=== PATIENT | female | born 1945 | race Caucasian/White ===

== ENCOUNTER → 2018-09-02 10:56 | Outpatient (CLI) | payer MEDICARE, OTHER, SELFPAY ==
[2018-09-02 12:14] LABS: Erythrocyte Sedimentation Rate 41 MM/HR (0-20)
[2018-09-02 12:16] LABS: BUN Creatinine Ratio 27.1 (6-22); Blood Urea Nitrogen 19 mg/dL (7-17); Calcium 9.7 mg/dL (8.4-10.2); Carbon Dioxide 33 mmol/L (22-32); Chloride 101 mmol/L (98-107); Estimated Glomerular Filt Rate > 60.0 mL/min (>60); Glucose 92 mg/dL (80-110); HEMOLYSIS < 15 (0-50); Potassium 3.4 mmol/L (3.4-5.1); Sodium 142 mmol/L (137-145)
[2018-09-02 12:44] LABS: TSH w/ Reflex to FT4 1.13 uIU/mL (0.47-4.68)
== END ==
PROVIDERS: Family Provider Family Medicine; PCP Family Medicine; Visit Provider Family Medicine
DX: G47.19 Other hypersomnia (principal); R53.83 Other fatigue; I10 Essential (primary) hypertension
CPT/HCPCS: 36415; 80048; 84443; 85651; 86140

== ENCOUNTER → 2020-01-07 16:54 | Outpatient (CLI) | payer MEDICARE, OTHER, SELFPAY ==
--- NOTE | 2020-01-07 16:57 | DI.MG.S_ITS ---
BILATERAL DIGITAL SCREENING MAMMOGRAM 3D/2D WITH CAD: 01/07/2020 CLINICAL: Routine screening. Comparison is made to exams dated: 07/25/2015 mammogram, 12/31/2016 mammogram, and 12/31/2017 mammogram - [facility]. There are scattered fibroglandular elements in both breasts. Current study was also evaluated with a Computer Aided Detection (CAD) system. There are benign vascular calcifications in the left breast. No significant masses, calcifications, or other findings are seen in either breast. There has been no significant interval change. IMPRESSION: BENIGN There is no mammographic evidence of malignancy. A 1 year screening mammogram is recommended. This exam was interpreted at Station ID: [id number]. NOTE: For mammograms, a report in lay terms will be sent to the patient. Approximately 15% of breast malignancies will not be visualized mammographically. In the management of a palpable breast mass, a negative mammogram must not discourage biopsy of a clinically suspicious lesion. Electronically Signed By: Denise zhu/abdirahman:01/11/2020 10:45:53 letter sent: Normal Exam ACR BI-RADS Category 2: Benign Finding(s) 3342F
== END ==
PROVIDERS: Family Provider Family Medicine; PCP Family Medicine; Referring Provider Family Medicine; Visit Provider Family Medicine
DX: Z12.31 Encounter for screening mammogram for malignant neoplasm of breast (principal)
CPT/HCPCS: 77063; 77067

== ENCOUNTER → 2020-09-19 13:30 | Outpatient (CLI) | payer MEDICARE, OTHER, SELFPAY ==
--- NOTE | 2020-09-19 13:31 | DI.RAD.S_ITS ---
PROCEDURE: XR SHOULDER LT MIN 2V INDICATIONS: left shoulder pain TECHNIQUE: 3 views of the shoulder were acquired. COMPARISON: None. FINDINGS: Bones: No fractures or dislocations. No suspicious bony lesions. Visualized ribs appear intact. Mild joint narrowing with periarticular osteophyte formation of the acromioclavicular and glenohumeral joint. Soft tissues: No suspicious soft tissue calcifications. IMPRESSION: Mild acromioclavicular and glenohumeral joint degeneration. Dictated by: Marcus Lindsay [facility] Interpreted: Josse Zarate MD on 09/19/2020 at 13:58 Transcribed by: JEROMY on 09/19/2020 at 14:00 Approved by: Josse Zarate M.D. on 09/19/2020 at 15:05
--- NOTE | 2020-09-19 13:31 | DI.RAD.S_ITS ---
PROCEDURE: XR HUMERUS LT 2V INDICATIONS: left arm pain TECHNIQUE: 2 views of the humerus were acquired. COMPARISON: [facility], CR, XR SHOULDER LT MIN 2V, 09/19/2020, 13:30. FINDINGS: Bones: No fractures or dislocations. No suspicious bony lesions. Soft tissues: No suspicious soft tissue calcifications. IMPRESSION: No definite radiographic abnormality. If pain persists with conservative management, consider cross sectional imaging such as CT or MRI for further assessment. Dictated by: Marcus Lindsay [facility] Interpreted: Josse Zarate MD on 09/19/2020 at 13:57 Transcribed by: JEROMY on 09/19/2020 at 13:58 Approved by: Josse Zarate M.D. on 09/19/2020 at 15:05
== END ==
PROVIDERS: Family Provider Family Medicine; PCP Family Medicine; Referring Provider Registered Nurse; Visit Provider Registered Nurse
DX: M25.512 Pain in left shoulder (principal); M79.602 Pain in left arm; M19.012 Primary osteoarthritis, left shoulder
CPT/HCPCS: 73030; 73060

== ENCOUNTER → 2021-01-15 17:50 | Outpatient (CLI) | payer MEDICARE, OTHER, SELFPAY ==
--- NOTE | 2021-01-15 | DI.MG.S_ITS ---
BILATERAL DIGITAL SCREENING MAMMOGRAM 3D/2D WITH CAD: 01/15/2021 CLINICAL: Routine screening. Comparison is made to exams dated: 01/07/2020 mammogram - [facility], 12/31/2017 mammogram, and 12/31/2016 mammogram - [facility]. There are scattered fibroglandular elements in both breasts. Current study was also evaluated with a Computer Aided Detection (CAD) system. There are calcifications in the right breast. There also are benign vascular calcifications in the left breast. No significant masses, calcifications, or other findings are seen in either breast. There has been no significant interval change. IMPRESSION: BENIGN There is no mammographic evidence of malignancy. A 1 year screening mammogram is recommended. This exam was interpreted at Station ID: [id number]. NOTE: For mammograms, a report in lay terms will be sent to the patient. Approximately 15% of breast malignancies will not be visualized mammographically. In the management of a palpable breast mass, a negative mammogram must not discourage biopsy of a clinically suspicious lesion. Electronically Signed By: Josse Zarate M.D. at/:01/16/2021 07:09:01 letter sent: Normal Exam ACR BI-RADS Category 2: Benign Finding(s) 3342F
== END ==
PROVIDERS: Family Provider Family Medicine; PCP Family Medicine; Referring Provider Family Medicine; Visit Provider Family Medicine
DX: Z12.31 Encounter for screening mammogram for malignant neoplasm of breast (principal)
CPT/HCPCS: 77063; 77067

== ENCOUNTER → 2021-04-10 10:08 | Outpatient (CLI) | payer MEDICARE, OTHER, SELFPAY ==
[2021-04-10 12:20] LABS: Add Manual Diff / Slide Review NO; Basophils Absolute Auto 0 /uL (0-100); Basophils Percent Auto 0.9 % (0-2); Eosinophils Absolute Auto 100 /uL (0-450); Eosinophils Percent Auto 2.1 % (2-4); Hematocrit 40.2 % (36-46); Hemoglobin 13.6 g/dL (12.0-16.0); Lymphocytes Absolute Auto 1300 /uL (1100-4500); Mean Corpuscular HGB Conc 33.7 % (30-36); Mean Corpuscular Hemoglobin 28.8 PG (26-34); Mean Corpuscular Volume 85.4 fL (80-100); Monocytes Absolute Auto 300 /uL (0-900); Neutrophils Absolute Auto 2900 /uL (1500-7000); Platelet Count 178 X10^3/uL (150-400); Red Cell Distribution Width 14.3 % (11.6-14.8); White Blood Cell Count 4.7 X10^3/uL (4.5-11.0)
[2021-04-10 13:25] LABS: Alanine Aminotransferase 16 IU/L (<35); Albumin 4.5 g/dL (3.5-5.0); Albumin Globulin Ratio 1.5 (1.0-2.8); Alkaline Phosphatase 69 U/L (38-126); Aspartate Aminotransferase 23 IU/L (14-36); BUN Creatinine Ratio 17.4 (6-22); Bilirubin Total 0.6 mg/dL (0.2-1.3); Blood Urea Nitrogen 12 mg/dL (7-17); Calcium 9.5 mg/dL (8.4-10.2); Carbon Dioxide 33 mmol/L (22-32); Chloride 102 mmol/L (98-107); Cholesterol 195 mg/dL (140-199); Estimated Glomerular Filt Rate > 60.0 mL/min (>60); Glucose 90 mg/dL (80-110); HDL Cholesterol 48 mg/dL (40-60); HEMOLYSIS < 15 (0-50); LDL Cholesterol Calculated 101 mg/dL (<100); Magnesium 2.1 mg/dL (1.6-2.3); Potassium 4.2 mmol/L (3.4-5.1); Sodium 142 mmol/L (137-145); Total Protein 7.5 g/dL (6.3-8.2); Triglycerides 232 mg/dL (35-150)
== END ==
PROVIDERS: Family Provider Family Medicine; PCP Family Medicine; Referring Provider Family Medicine; Visit Provider Family Medicine
DX: E78.5 Hyperlipidemia, unspecified (principal); I10 Essential (primary) hypertension; M85.80 Other specified disorders of bone density and structure, unspecified site; R73.03 Prediabetes; Z00.00 Encounter for general adult medical examination without abnormal findings
CPT/HCPCS: 36415; 80053; 80061; 83735; 84443; 85025

== ENCOUNTER → 2022-01-28 16:15 | Outpatient (CLI) | payer MEDICARE, OTHER, SELFPAY ==
--- NOTE | 2022-01-28 16:16 | DI.MG.S_ITS ---
BILATERAL DIGITAL SCREENING MAMMOGRAM 3D/2D WITH CAD: 01/28/2022 CLINICAL: Routine screening. Comparison is made to exams dated: 01/15/2021 mammogram, 01/07/2020 mammogram - [facility], 12/31/2017 mammogram, and 12/31/2016 mammogram - [facility]. There are scattered areas of fibroglandular density in both breasts (category b / 25%-50% glandular tissue). Current study was also evaluated with a Computer Aided Detection (CAD) system. There are benign calcifications in the right breast. There also are benign vascular calcifications in the left breast. Additionally, there are benign post operative findings in the right breast. No significant masses, calcifications, or other findings are seen in either breast. There has been no significant interval change. IMPRESSION: BENIGN There is no mammographic evidence of malignancy. A 1 year screening mammogram is recommended. Based on the Tyrer Cuzick model (a risk assessment model) the patient's lifetime risk is 3.6% and her 10 year risk is 3.2%. According to the ACR, ACS, and NCCN guidelines, an annual breast MRI exam along with mammogram is recommended if the patient's lifetime risk is 20% or greater. This exam was interpreted at Station ID: [id number]. NOTE: For mammograms, a report in lay terms will be sent to the patient. Approximately 15% of breast malignancies will not be visualized mammographically. In the management of a palpable breast mass, a negative mammogram must not discourage biopsy of a clinically suspicious lesion. Electronically Signed By: Chuy anaya/abdirahman:01/29/2022 08:52:52 letter sent: Normal Exam ACR BI-RADS Category 2: Benign Finding(s) 3342F
== END ==
PROVIDERS: Family Provider Family Medicine; PCP Family Medicine; Referring Provider Family Medicine; Visit Provider Family Medicine
DX: Z12.31 Encounter for screening mammogram for malignant neoplasm of breast (principal)
CPT/HCPCS: 77063; 77067

== ENCOUNTER 2022-07-17 14:13 | Emergency (ER) | payer MEDICARE, OTHER, SELFPAY ==
--- NOTE | 2022-07-17 14:33 | DI.RAD.S_ITS ---
PROCEDURE: XR HIP W PEL IF DONE RT 2V INDICATIONS: pain TECHNIQUE: 2 views of the hip were acquired. COMPARISON: None. FINDINGS: Bones: No fractures or dislocations. No suspicious bony lesions. The visualized pelvic ring appears intact. Soft tissues: No suspicious soft tissue calcifications or masses. IMPRESSION: No acute bony abnormality. Dictated by: Juve Greco M.D. on 07/17/2022 at 16:00 Approved by: Juve Greco M.D. on 07/17/2022 at 16:01
[2022-07-17 14:34] VITALS: BP 218/103; PULSE 74; RESP 18; TEMP 36.6; O2SAT 95; BMI 28.5
--- NOTE | 2022-07-17 14:38 | DI.RAD.S_ITS ---
PROCEDURE: XR LUMBAR SPINE 2-3V INDICATIONS: Radiculopathy with hip pain TECHNIQUE: 3 views of the lumbar spine were acquired. COMPARISON: None. FINDINGS: Bones: 5 yov-lpe-epsufum vertebrae are present. Convex left curvature of the lumbar spine, centered at L2-3. Grade 1 anterolisthesis of L4 on L5 and L3 on L4. Extensive facet arthrosis. Moderate disc height loss at all levels. Soft tissues: Overlying bowel gas pattern is normal. No suspicious soft tissue calcifications. IMPRESSION: Moderate, multilevel degenerative disc disease and facet arthrosis. Mild listhesis as above, likely due to facet arthrosis. Dictated by: Juve Greco M.D. on 07/17/2022 at 15:59 Approved by: Juve Greco M.D. on 07/17/2022 at 15:59
--- NOTE | 2022-07-17 14:38 | ED.EXTPRO ---
HPI - Extremity Problem <Katelyn June, [facility] - Last Filed: 07/17/22 16:25> General Chief complaint: Extremity Problem,Nontraumatic Stated complaint: RT hip/knee painful can't sleep T-21 Time Seen by Provider: 07/17/22 14:37 Source: patient Mode of arrival: Wheelchair History of Present Illness HPI Narrative: This is a 77-year-old female emergency department after a long road trip complaining of right-sided hip pain with radiation down to her knee and denies any recent trauma. She states that she has known curvature to her spine, states that she has not had much for sciatica symptoms in the past but has been having right hip pain which radiates to her right knee ever since coming back on this trip. She denies any recent falls or injuries, denies any weakness, denies any stool urinary changes. Denies recent fever chills, upper respiratory infection, or history of substance abuse. Related Data Home Medications Medication Instructions Recorded Confirmed triamcinolone acetonide 0.1 % 1 applic topical DAILY PRN 07/06/20 01/23/22 topical cream [employer] DreamStation 2 #1 ea 01/09/21 01/23/22 Previous Rx's Medication Instructions Recorded armodafinil 50 mg tablet 50 mg PO QAM PRN Excessive daytime 05/21/18 sleepiness #30 tabs calcium carbonate 500 mg-vitamin 1 tab PO BIDCC #180 tabs 01/25/21 D3 5 mcg (200 unit) tablet (Oyster Shell Calcium-Vitamin D3) omeprazole 20 mg capsule,delayed 20 mg PO Q DAY #90 caps 04/19/22 release simvastatin 40 mg tablet (Zocor) 40 mg PO HS #90 tabs 04/19/22 hydrocodone 5 mg-acetaminophen 325 1 tab PO TID PRN pain #14 tabs 07/17/22 mg tablet lidocaine 5 % topical patch 1 patch topical DAILY PRN 07/17/22 sciatica, place over low back #30 ea methocarbamol 500 mg tablet 500 mg PO Q8H PRN muscle 07/17/22 tightness/spasm/sleep #20 tabs prednisone 20 mg tablet 20 mg PO DAILY #5 tabs 07/17/22 Allergies Allergy/AdvReac Type Severity Reaction Status Date / Time penicillin G [PENICILLIN G] Allergy Severe Hives Verified 01/23/22 14:15 tolmetin [TOLMETIN] Allergy Severe HIVES Verified 01/23/22 14:15 coffee (Coffea arabica) AdvReac Mild TACHYCARDIA Verified 01/23/22 14:15 [COFFEE] Review of Systems <YELITZA Chavez - Last Filed: 07/17/22 16:25> Review of Systems ROS Unobtainable: All systems reviewed & are unremarkable except as noted in HPI and below Patient History <YELITZA Chavez - Last Filed: 07/17/22 16:25> Medical History Allergic rhinitis due to pollen Behind on immunizations Borderline diabetes mellitus (05/20/14) Class 1 obesity (05/20/14) Dermatitis (03/17/13) Eczema Endometrial hyperplasia (01/28/13) Excessive daytime sleepiness Fibroadenoma of right breast (03/25/13) GERD (gastroesophageal reflux disease) Hyperlipidemia Hypertension Left arm pain Left shoulder pain Menopause Normal Papanicolaou smear Obstructive sleep apnea syndrome (01/2010) Osteopenia (11/22/15) Physician orders for life-sustaining treatment (POLST) form indicates patient wish for fc-nxe-wverzlshclb status (08/07/15) Thickened endometrium (01/2013) Surgical History Status post breast lumpectomy Status post laparoscopic cholecystectomy (2001) Family History Father Glaucoma COPD (chronic obstructive pulmonary disease) Smoker Alcohol drinker Mother Tobacco use disorder Throat cancer Family/Other Brain aneurysm Social History marital status: details: to Rikki, lives in [place] household members: spouse lives independently: Yes caregiver/support person: No housing: house pets and animals: Yes (3 Yorkies) Smoking Status: Former smoker Smoking Status: Former smoker Exam <YELITZA Chavez - Last Filed: 07/17/22 16:25> Narrative Exam Narrative: Reviewed vitals signs and nursing notes. General: Pleasant, sitting upright, in no acute distress, well groomed, afebrile HEENT: symmetrical facial expressions, moist mucous membranes, neck is supple CV: regular rate and rhythm, warm extremities Respiratory: normal work of breathing, without tachypnea or hypoxia. GI: abdomen soft, nondistended, without CVA tenderness bilaterally. MSK: moves all extremities, no weakness, normal tone, ambulatory without deficit, right leg lift exacerbates symptoms, nontender over lumbar and sacral spine, she has radiation to the right lateral hip BACK: tubular splitting machine tender but free of any obvious external abnormalities out vertebral point tenderness. There are no symptoms of cauda equina such as saddle anesthesia, and decreased reflexes, decreased sensation or strength. Skin: brisk capillary refill, without rash or wound Neuro: clear speech and normal cognition, A&O x3, GCS 15, no focal motor or sensation deficits Initial Vital Signs Initial Vital Signs: Vital Signs Temperature 98 F 07/17/22 14:34 Pulse Rate 74 07/17/22 14:34 Respiratory Rate 18 07/17/22 14:34 Blood Pressure 218/103 H 07/17/22 14:34 Pulse Oximetry 95 07/17/22 14:34 Oxygen Delivery Method Room Air 07/17/22 14:34 <Kyree Mcdonald MD - Last Filed: 07/20/22 12:46> Initial Vital Signs Initial Vital Signs: Vital Signs Temperature 98 F 07/17/22 14:34 Pulse Rate 74 07/17/22 14:34 Respiratory Rate 18 07/17/22 14:34 Blood Pressure 218/103 H 07/17/22 14:34 Pulse Oximetry 95 07/17/22 14:34 Oxygen Delivery Method Room Air 07/17/22 14:34 Course <YELITZA Chavez - Last Filed: 07/17/22 16:25> Orders Ordered: Discontinued Medications Hydrocodone Bitart/Acetaminophen (Hydrocodone/Acet 5/325 Tablet) 1 tab PO NOW ONE Stop: 07/17/22 14:47 Last Admin: 07/17/22 15:19 Dose: 1 tab Documented By: INOCENCIO Diazepam (Diazepam 5 Mg Tablet) 5 mg PO NOW ONE Stop: 07/17/22 14:49 Last Admin: 07/17/22 15:20 Dose: 5 mg Documented By: INOCENCIO Lidocaine (Lidocaine Patch 1 Each Adh..Patch) 1 each TOP NOW ONE Stop: 07/17/22 14:47 Last Admin: 07/17/22 15:13 Dose: 1 each Documented By: INOCENCIO Prednisone (Prednisone 20 Mg Tablet) 40 mg PO NOW ONE Stop: 07/17/22 14:47 Last Admin: 07/17/22 15:19 Dose: 40 mg Documented By: INOCENCIO Vital Signs Vital signs: Vital Signs - 8 hr 07/17/22 14:34 07/17/22 15:24 07/17/22 15:53 Temperature 98 F Pulse Rate 74 70 71 Respiratory Rate 18 18 14 Blood Pressure 218/103 H 212/98 H 192/88 H Pulse Oximetry 95 98 95 Oxygen Delivery Method Room Air Room Air <Kyree Mcdonald MD - Last Filed: 07/20/22 12:46> Orders Ordered: Discontinued Medications Hydrocodone Bitart/Acetaminophen (Hydrocodone/Acet 5/325 Tablet) 1 tab PO NOW ONE Stop: 07/17/22 14:47 Last Admin: 07/17/22 15:19 Dose: 1 tab Documented By: INOCENCIO Diazepam (Diazepam 5 Mg Tablet) 5 mg PO NOW ONE Stop: 07/17/22 14:49 Last Admin: 07/17/22 15:20 Dose: 5 mg Documented By: INOCENCIO Lidocaine (Lidocaine Patch 1 Each Adh..Patch) 1 each TOP NOW ONE Stop: 07/17/22 14:47 Last Admin: 07/17/22 15:13 Dose: 1 each Documented By: INOCENCIO Prednisone (Prednisone 20 Mg Tablet) 40 mg PO NOW ONE Stop: 07/17/22 14:47 Last Admin: 07/17/22 15:19 Dose: 40 mg Documented By: INOCENCIO Vital Signs Vital signs: Vital Signs - 8 hr 07/17/22 14:34 07/17/22 15:24 07/17/22 15:53 Temperature 98 F Pulse Rate 74 70 71 Respiratory Rate 18 18 14 Blood Pressure 218/103 H 212/98 H 192/88 H Pulse Oximetry 95 98 95 Oxygen Delivery Method Room Air Room Air MDM - Extremity (Nontraumatic) <YELITZA Chavez - Last Filed: 07/17/22 16:25> MDM Narrative Medical decision making narrative: Chief Complaint: Right hip pain and sciatica Primary historian: Patient Differential diagnoses considered but not limited to: disc injury/herniation, radiculopathy, muscular sprain, chronic pain, malignancy, spondyloarthropathy, nerve compression, acute fracture, urinary tract infection, osteoarthritis, degenerative disc disease, cauda equina, osteomyelitis, epidural abscess, spinal stenosis, ligamental injury. I have reviewed the patient's vital signs and nursing notes as well as prior records if available. Prior Charts reviewed: Yes My interpretation of Imaging: Lumbar x-ray shows degenerative disc disease and facet arthropathy. Course of care: Suspect likely musculoskeletal etiology and acute exacerbation of lumbar radiculopathy due to recent long travel and curvature of spine Patient's straight leg raise test was positive. No back pain red flags on history or physical. No history of IV substance use, or bony tenderness to palpation, no trauma, no bony tenderness to palpation, and are afebrile. No bowel or urinary incontinence or retention, no saddle anesthesia, no new/worsening distal weakness, decreased reflexes or foot drop. Pt is nontoxic appearing. Patient has soft tissue tenderness to palpation. Pt is neurovascularly intact distally, without decreased reflexes or strength, and without immunosuppression or evidence of infection, peritoneal signs, hypertensive crisis, incontinence, or meningeal signs. Patient's symptoms improved over duration of stay with above-stated therapies. Discharge diagnosis, return precautions and plan discussed with patient followed by verbalization of understanding. Social considerations that may affect disposition: none Questions are addressed and there is agreement with the plan and for follow-up with PCP and with Orthopedics for outpatient physical therapy and advanced imaging if indicated. Patient is appropriate for outpatient management. MIPS: This encounter doesn't have any diagnosis' associated with MIPS criteria. Social considerations that may affect disposition: none Questions are addressed and there is agreement with the plan and for follow-up. I consulted with the ED attending physician Dr. Mcdonald as needed for higher level of care considerations and they were available for discussion and recommendations regarding plan of care and diagnostic testing. Patient is appropriate for outpatient management. Discharge Plan Departure Patient Disposition: Home Clinical Impression: Acute lumbar radiculopathy Hypertension Qualifiers: Hypertension type: unspecified Qualified Code(s): I10 - Essential (primary) hypertension Degenerative disk disease Qualifiers: Spinal region: unspecified cervical region Qualified Code(s): M50.30 - Other cervical disc degeneration, unspecified cervical region Instructions: DI for High Blood Pressure, Lumbar Radiculopathy Activity Restrictions/Additional Instructions: *You have been diagnosed with lumbar radiculopathy/sciatica in your right leg. I am sorry for this pain as it can be quite severe. I have given you a steroid to help decrease the inflammation, if you are tolerant of ibuprofen or leave or any other anti-inflammatory medicine, please use this in conjunction with Tylenol for pain. If you have muscle spasms or tightness, take methocarbamol, it will make you sleepy, if you have severe pain please take hydrocodone but take a stool softener with it because constipation with this pain can be worsening pain. I hope you feel better soon. You have elevated blood pressure today. Please send Dr. Ma a message and let her know that you were seen in the emergency department for this and for your high blood pressure, and ask for a sooner appointment than December. See if you can move yours up more urgently. If you can, ask for an MRI of your lumbar spine, a referral to physical therapy, and to start you on a blood pressure medication. Since you not have any symptoms from this high blood pressure, it is not an emergency to treat it. I want you to feel better from your pain and I assume this blood pressure will come down a little bit. Schedule an appointment with [facility], I have sent your chart to both the office and to Dr. Ma. Your appointment at [facility] will be for follow-up and evaluation of your low back and hip pain. *What to do: *Please continue to take your regular medications as directed. [x ] New medication prescriptions sent to your pharmacy: [DOD] [ ] New medication written as a paper prescription [ ] No new medications given *Please call and schedule follow up with your primary care provider in 2-3 days, at least for an update. Let them know you were seen in the Emergency Department for the above problem. We will electronically transmit a record of today's note if your PCP or specialist is in our system. *If you do not have a primary care provider please contact [phone] to establish care with one of the [facility] primary care providers. *Return to the Emergency Department for worsening symptoms, inability to keep liquids down, fever greater than 101F, chills, or other concerning symptom. Prescriptions: New prednisone 20 mg tablet 20 mg PO DAILY Qty: 5 0RF lidocaine 5 % adhesive patch,medicated 1 patch topical DAILY PRN (Reason: sciatica, place over low back) Qty: 30 0RF Rx Instructions: leave on most painful area for up to 12 hrs methocarbamol 500 mg tablet 500 mg PO Q8H PRN (Reason: muscle tightness/spasm/sleep) Qty: 20 0RF hydrocodone-acetaminophen 5-325 mg tablet 1 tab PO TID PRN (Reason: pain) Qty: 14 0RF Rx Instructions: Please take a stool softener with this medication to prevent worsening pain and constipation. No Action calcium carbonate-vitamin D3 [Oyster Shell Calcium-Vit D3] 500 mg-5 mcg (200 unit) tablet 1 tab PO BIDCC Qty: 180 3RF omeprazole 20 mg capsule,delayed release(DR/EC) 20 mg PO Q DAY Qty: 90 0RF simvastatin [Zocor] 40 mg tablet 40 mg PO HS Qty: 90 0RF armodafinil 50 mg tablet 50 mg PO QAM PRN (Reason: Excessive daytime sleepiness) Qty: 30 0RF (DME) [employer] DreamStation 2 Qty: 1 Dose Instruction: As directed Patient Comments: Pressure: 6-12 cmH2O DME: [facility] Rx Instructions: As directed triamcinolone acetonide 0.1 % cream 1 applic TOP DAILY PRN Referrals: [facility] [Provider Group] Mable Ma DO [Primary Care Provider] - Stand Alone Forms: Patient Portal/API <Kyree Mcdonald MD - Last Filed: 07/20/22 12:46> Cosign ED Attending Cosignature Attestation: I was immediately available in the department for consultation. This documentation has been reviewed and I agree with assessment and plan. Supervised by Kyree Mcdonald MD
[2022-07-17] MEDS: LIDOCAINE PATCH 1 EACH ADH..PATCH TOP (15:13)
[2022-07-17] MEDS: HYDROCODONE/ACET 5/325 TABLET 1 TAB PO (15:19)
[2022-07-17] MEDS: predniSONE 20 MG TABLET 40 MG PO (15:19)
[2022-07-17] MEDS: diazePAM 5 MG TABLET PO (15:20)
[2022-07-17 15:24] VITALS: BP 212/98; PULSE 70; RESP 18; O2SAT 98
--- NOTE | 2022-07-17 15:29 | PC.NURSE ---
SBP consistently 200's, taken multiple times. Pt dneis headache or change in vision, chest pain, palpitations. Pt does not take BP medications. provdier updated.
[2022-07-17 15:53] VITALS: BP 192/88; PULSE 71; RESP 14; O2SAT 95
== END 2022-07-17 16:38 | disposition home or self-care (01) ==
PROVIDERS: Emergency Provider Nurse Practitioner Critical Care Medicine; Family Provider Family Medicine; PCP Family Medicine
DX: M54.16 Radiculopathy, lumbar region (principal); I10 Essential (primary) hypertension; M50.30 Other cervical disc degeneration, unspecified cervical region
CPT/HCPCS: 72100; 73502; 99283; 99284

== ENCOUNTER → 2022-12-23 09:03 | Outpatient (CLI) | payer MEDICARE, OTHER, SELFPAY ==
[2022-12-23 09:48] LABS: Alanine Aminotransferase 22 IU/L (<35); Albumin 4.3 g/dL (3.5-5.0); Albumin Globulin Ratio 1.3 (1.0-2.8); Alkaline Phosphatase 74 U/L (38-126); Aspartate Aminotransferase 25 IU/L (14-36); BUN Creatinine Ratio 15.2 (6-22); Bilirubin Total 0.6 mg/dL (0.2-1.3); Blood Urea Nitrogen 10 mg/dL (7-17); Calcium 9.9 mg/dL (8.4-10.2); Carbon Dioxide 32 mmol/L (22-32); Chloride 103 mmol/L (98-107); Cholesterol 191 mg/dL (140-199); Estimated Glomerular Filt Rate > 60 mL/min (>60); Globulin 3.2 g/dL (1.7-4.1); Glucose 103 mg/dL (80-110); HDL Cholesterol 51 mg/dL (40-60); HEMOLYSIS < 15 (0-50); LDL Cholesterol Calculated 102 mg/dL (<100); Sodium 139 mmol/L (137-145); Total Protein 7.5 g/dL (6.3-8.2); Triglycerides 190 mg/dL (35-150)
[2022-12-23 09:52] LABS: High Sensitivity CRP - Cardiac 2.4 mg/L (1.0-3.0)
[2022-12-23 10:10] LABS: Creatinine Urine Random 96.9 mg/dL
[2022-12-23 10:15] LABS: Microalbumi Creatinin Ratio Ur 17.5 ug/mg CR (<30); Microalbumin Urine Random 1.7 mg/dL (0-1.6)
[2022-12-23 10:28] LABS: TSH w/ Reflex to FT4 2.42 uIU/mL (0.47-4.68)
[2022-12-23 12:44] LABS: Hemoglobin A1C% w Est Avg Glu 5.6 % (4.0-6.0)
== END ==
PROVIDERS: Family Provider Family Medicine; PCP Family Medicine; Referring Provider Family Medicine; Visit Provider Family Medicine
DX: R73.03 Prediabetes (principal); E66.9 Obesity, unspecified; K21.9 Gastro-esophageal reflux disease without esophagitis; M85.80 Other specified disorders of bone density and structure, unspecified site; I10 Essential (primary) hypertension; E78.5 Hyperlipidemia, unspecified
CPT/HCPCS: 36415; 80053; 80061; 82043; 82570; 83036; 84443; 86140

== ENCOUNTER → 2023-02-05 09:14 | Outpatient (CLI) | payer MEDICARE, OTHER, SELFPAY ==
--- NOTE | 2023-02-05 | DI.MG.S_ITS ---
BILATERAL DIGITAL SCREENING MAMMOGRAM 3D/2D WITH CAD: 02/05/2023 CLINICAL: Routine screening. Comparison is made to exams dated: 01/28/2022 mammogram, 01/15/2021 mammogram, and 01/07/2020 mammogram - [facility]. There are scattered areas of fibroglandular density in both breasts (category b / 25%-50% glandular tissue). Current study was also evaluated with a Computer Aided Detection (CAD) system. There are benign calcifications in the right breast. There also are benign vascular calcifications in the left breast. Additionally, there are benign post operative findings in the right breast. No significant masses, calcifications, or other findings are seen in either breast. There has been no significant interval change. IMPRESSION: BENIGN There is no mammographic evidence of malignancy. A 1 year screening mammogram is recommended. Based on the Tyrer Cuzick model (a risk assessment model) the patient's lifetime risk is 3.3% and her 10 year risk is 3.3%. According to the ACR, ACS, and NCCN guidelines, an annual breast MRI exam along with mammogram is recommended if the patient's lifetime risk is 20% or greater. This exam was interpreted at Station ID: [id number]. NOTE: For mammograms, a report in lay terms will be sent to the patient. Approximately 15% of breast malignancies will not be visualized mammographically. In the management of a palpable breast mass, a negative mammogram must not discourage biopsy of a clinically suspicious lesion. Electronically Signed By: Jeremi chavez/abdirahman:02/05/2023 12:10:44 letter sent: Normal Exam ACR BI-RADS Category 2: Benign Finding(s) 3342F
== END ==
PROVIDERS: Family Provider Family Medicine; PCP Family Medicine; Referring Provider Family Medicine; Visit Provider Family Medicine
DX: Z12.31 Encounter for screening mammogram for malignant neoplasm of breast (principal)
CPT/HCPCS: 77063; 77067

== ENCOUNTER → 2023-07-22 12:30 | Outpatient (CLI) | payer MEDICARE, OTHER, SELFPAY ==
--- NOTE | 2023-07-22 12:32 | DI.RAD.S_ITS ---
PROCEDURE: XR HIP W PEL IF DONE GORAN MIN 4V INDICATIONS: bilateral hip pain, r/o osteoarthritis TECHNIQUE: AP pelvis with lateral view(s) of the bilateral hip(s). COMPARISON: [facility], , XR HIP W PEL IF DONE RT 2V, 07/17/2022, 14:48. FINDINGS: Bones: No fractures or dislocations. Pelvic ring appears intact. No suspicious bony lesions. Mild nonuniform joint space narrowing with osteophytic lipping of the acetabulum. Soft tissues: The visualized bowel gas pattern is normal. No suspicious soft tissue calcifications. IMPRESSION: [id number] bilateral hip osteoarthritis. Dictated by: Juve Greco M.D. on 07/22/2023 at 13:58 Approved by: Juve Greco M.D. on 07/22/2023 at 13:59
--- NOTE | 2023-07-22 12:32 | DI.RAD.S_ITS ---
PROCEDURE: XR KNEE RT 3V INDICATIONS: right knee pain, lateral > medial pain TECHNIQUE: 3 views of the knee were acquired. COMPARISON: None. FINDINGS: Bones: No fractures or dislocations. No suspicious bony lesions. Tricompartmental joint space narrowing with associated osteophytosis. Soft tissues: Small joint effusion. No suspicious soft tissue calcifications. IMPRESSION: [id number] tricompartmental osteoarthritis. Kellgren-James Grade 2. Dictated by: Juve Greco M.D. on 07/22/2023 at 13:59 Approved by: Juve Greco M.D. on 07/22/2023 at 13:59
== END ==
PROVIDERS: Family Provider Family Medicine; PCP Family Medicine; Referring Provider Family Medicine; Visit Provider Family Medicine
DX: M16.0 Bilateral primary osteoarthritis of hip (principal); M17.11 Unilateral primary osteoarthritis, right knee; M25.551 Pain in right hip; M25.552 Pain in left hip; M25.561 Pain in right knee
CPT/HCPCS: 73522; 73562

== ENCOUNTER → 2024-01-19 11:17 | Outpatient (CLI) | payer MEDICARE, OTHER, SELFPAY ==
[2024-01-19 12:06] LABS: Hematocrit 39.5 % (36-46); Hemoglobin 13.1 g/dL (12.0-16.0); Mean Corpuscular HGB Conc 33.1 % (30-36); Mean Corpuscular Volume 87.7 fL (80-100); Platelet Count 188 X10^3/uL (150-400); Red Cell Distribution Width 13.9 % (11.6-14.8)
[2024-01-19 12:16] LABS: Hemoglobin A1C% w Est Avg Glu 5.1 % (4.0-6.0)
[2024-01-19 12:26] LABS: Alanine Aminotransferase 21 IU/L (<35); Albumin 4.3 g/dL (3.5-5.0); Albumin Globulin Ratio 1.4 (1.0-2.8); Alkaline Phosphatase 70 U/L (38-126); Aspartate Aminotransferase 29 IU/L (14-36); BUN Creatinine Ratio 19.2 (6-22); Bilirubin Total 0.5 mg/dL (0.2-1.3); Blood Urea Nitrogen 14 mg/dL (7-17); Calcium 9.3 mg/dL (8.4-10.2); Carbon Dioxide 33 mmol/L (22-32); Chloride 102 mmol/L (98-107); Estimated Glomerular Filt Rate > 60 mL/min (>60); Globulin 3.1 g/dL (1.7-4.1); Glucose 93 mg/dL (80-110); HEMOLYSIS < 15 (0-50); Sodium 141 mmol/L (137-145); Total Protein 7.4 g/dL (6.3-8.2)
[2024-01-19 12:27] LABS: Cholesterol 225 mg/dL (140-199); HDL Cholesterol 52 mg/dL (40-60); LDL Cholesterol Calculated 132 mg/dL (<100); Triglycerides 207 mg/dL (35-150)
[2024-01-19 18:16] LABS: High Sensitivity CRP - Cardiac 1.3 mg/L (1.0-3.0)
== END ==
PROVIDERS: Family Provider Family Medicine; PCP Family Medicine; Referring Provider Family Medicine; Visit Provider Family Medicine
DX: E78.5 Hyperlipidemia, unspecified (principal); R73.03 Prediabetes; I10 Essential (primary) hypertension
CPT/HCPCS: 36415; 80053; 80061; 83036; 85027; 86140

== ENCOUNTER → 2024-02-09 15:36 | Outpatient (CLI) | payer MEDICARE, OTHER, SELFPAY ==
--- NOTE | 2024-02-09 16:14 | DI.MG.S_ITS ---
BILATERAL DIGITAL SCREENING MAMMOGRAM 3D/2D WITH CAD: 02/09/2024 CLINICAL: Routine screening. Comparison is made to exams dated: 02/05/2023 mammogram, 01/28/2022 mammogram, and 01/15/2021 mammogram - [facility]. There are scattered areas of fibroglandular density (category b / 25%-50% glandular tissue). Current study was also evaluated with a Computer Aided Detection (CAD) system. There are benign calcifications in the right breast. There also are benign vascular calcifications in the left breast. Additionally, there are benign post operative findings in the right breast. No significant masses, calcifications, or other findings are seen in either breast. There has been no significant interval change. IMPRESSION: BENIGN There is no mammographic evidence of malignancy. A 1 year screening mammogram is recommended. Based on the Tyrer Cuzick model (a risk assessment model) the patient's lifetime risk is 3.0% and her 10 year risk is 0.0%. According to the ACR, ACS, and NCCN guidelines, an annual breast MRI exam along with mammogram is recommended if the patient's lifetime risk is 20% or greater. This exam was interpreted at Station ID: [id number]. NOTE: For mammograms, a report in lay terms will be sent to the patient. Approximately 15% of breast malignancies will not be visualized mammographically. In the management of a palpable breast mass, a negative mammogram must not discourage biopsy of a clinically suspicious lesion. Electronically Signed By: Josse hansen/abdirahman:02/10/2024 08:01:34 letter sent: Normal Exam ACR BI-RADS Category 2: Benign
== END ==
PROVIDERS: Family Provider Family Medicine; PCP Family Medicine; Referring Provider Family Medicine; Visit Provider Family Medicine
DX: Z12.31 Encounter for screening mammogram for malignant neoplasm of breast (principal)
CPT/HCPCS: 77063; 77067

== ENCOUNTER → 2024-07-06 14:36 | Outpatient (CLI) | payer MEDICARE, OTHER, SELFPAY ==
[2024-07-06 15:28] LABS: BUN Creatinine Ratio 18.8 (6-22); Blood Urea Nitrogen 13 mg/dL (7-17); Calcium 9.6 mg/dL (8.4-10.2); Carbon Dioxide 31 mmol/L (22-32); Chloride 103 mmol/L (98-107); Estimated Glomerular Filt Rate > 60 mL/min (>60); Glucose 84 mg/dL (70-99); HEMOLYSIS < 15 (0-50); Potassium 3.8 mmol/L (3.4-5.1); Sodium 141 mmol/L (137-145)
== END ==
PROVIDERS: PCP Family Medicine; Referring Provider Family Medicine; Visit Provider Family Medicine
DX: Z51.81 Encounter for therapeutic drug level monitoring (principal)
CPT/HCPCS: 36415; 80048

== ENCOUNTER → 2025-01-19 13:58 | Outpatient (CLI) | payer MEDICARE, OTHER, SELFPAY ==
[2025-01-19 14:47] LABS: Alanine Aminotransferase 16 IU/L (<35); Albumin 4.4 g/dL (3.5-5.0); Albumin Globulin Ratio 1.5 (1.0-2.8); Alkaline Phosphatase 73 U/L (38-126); Blood Urea Nitrogen 11 mg/dL (7-17); Calcium 9.6 mg/dL (8.4-10.2); Carbon Dioxide 33 mmol/L (22-32); Chloride 100 mmol/L (98-107); Cholesterol 195 mg/dL (140-199); Estimated Glomerular Filt Rate > 60 mL/min (>60); Globulin 3.0 g/dL (1.7-4.1); Glucose 83 mg/dL (70-99); HDL Cholesterol 51 mg/dL (40-60); HEMOLYSIS < 15 (0-50); Potassium 3.9 mmol/L (3.4-5.1); Sodium 141 mmol/L (137-145); Total Protein 7.4 g/dL (6.3-8.2); Triglycerides 200 mg/dL (35-150)
[2025-01-19 15:18] LABS: TSH w/ Reflex to FT4 1.26 uIU/mL (0.47-4.68)
[2025-01-19 15:22] LABS: Ferritin 47 ng/mL (11-264)
[2025-01-19 18:14] LABS: Vitamin D 25 Hydroxy (D3) 53.8 ng/mL (30.0-100.0)
== END ==
PROVIDERS: PCP Family Medicine; Referring Provider Family Medicine; Visit Provider Family Medicine
DX: E03.9 Hypothyroidism, unspecified (principal); M25.551 Pain in right hip; E55.9 Vitamin D deficiency, unspecified; I10 Essential (primary) hypertension; M25.552 Pain in left hip; E78.5 Hyperlipidemia, unspecified; R53.82 Chronic fatigue, unspecified
CPT/HCPCS: 36415; 80053; 80061; 82306; 82728; 84443; 86140